=== PATIENT | female | born 1970 | race Caucasian/White ===

== ENCOUNTER → 2017-09-23 | Outpatient (CLI) | payer OTHER | LOC: BMCIMAGING 12:46 | PROVIDERS: ATTEND Physician Assistant | DX: Z12.31 Encounter for screening mammogram for malignant neoplasm of breast (principal); Z80.3 Family history of malignant neoplasm of breast | CPT/HCPCS: G0202 ==

== ENCOUNTER → 2018-10-18 | Outpatient (CLI) | payer OTHER | LOC: BMCIMAGING 10:50 | PROVIDERS: ATTEND Physician Assistant | DX: R92.0 Mammographic microcalcification found on diagnostic imaging of breast (principal) ==

== ENCOUNTER → 2018-11-16 | Day surgery (SDC) | payer OTHER ==
[~2018-11-16] MED LIST: BUPIVACAINE 0.5% 30 ML SDV ONE; LIDOCAINE 1% 300 MG/30 ML SDV ONE; THROMBIN (BOVINE) 5,000 UNIT VIAL TP ONE
== END ==
LOC: FIMAGING 07:19
PROVIDERS: ATTEND Radiology Diagnostic Radiology
PROC: BH01ZZZ Plain Radiography of Left Breast (ICD-10-PCS; principal; 2018-11-16)
PROC: 0HBU3ZX Excision of Left Breast, Percutaneous Approach, Diagnostic (ICD-10-PCS; principal; 2018-11-16)
DX: C50.912 Malignant neoplasm of unspecified site of left female breast (principal); Z17.0 Estrogen receptor positive status [ER+]

== ENCOUNTER → 2018-12-03 | Outpatient (CLI) | payer OTHER ==
[~2018-12-03] MED LIST changes: -BUPIVACAINE 0.5% 30 ML SDV ONE; +GADOBUTROL 10 ML VIAL IVP ONE; -LIDOCAINE 1% 300 MG/30 ML SDV ONE; -THROMBIN (BOVINE) 5,000 UNIT VIAL TP ONE
== END ==
LOC: FIMAGING 11:31
PROVIDERS: ATTEND Surgery
DX: D05.12 Intraductal carcinoma in situ of left breast (principal); N63.21 Unspecified lump in the left breast, upper outer quadrant
CPT/HCPCS: A9585; C8908

== ENCOUNTER → 2018-12-06 | Outpatient (CLI) | payer OTHER | LOC: BRMIMAGING 09:20 | PROVIDERS: ATTEND Surgery | DX: N63.21 Unspecified lump in the left breast, upper outer quadrant (principal); C50.512 Malignant neoplasm of lower-outer quadrant of left female breast | CPT/HCPCS: 76641-PO ==

== ENCOUNTER → 2018-12-13 | Outpatient (CLI) | payer OTHER ==
[~2018-12-13] MED LIST changes: +BUPIVACAINE 0.5% 30 ML SDV ONE; -GADOBUTROL 10 ML VIAL IVP ONE; +LIDOCAINE 1% 300 MG/30 ML SDV ONE
== END ==
LOC: FIMAGING 07:19
PROVIDERS: ATTEND Surgery
PROC: 0HBU3ZX Excision of Left Breast, Percutaneous Approach, Diagnostic (ICD-10-PCS; principal; 2018-12-13)
DX: C50.212 Malignant neoplasm of upper-inner quadrant of left female breast (principal)

== ENCOUNTER 2018-12-28 09:05 | Observation (INO) | payer OTHER ==
[2018-12-28] MEDS ORDERED: LR 1,000 ML IV ONE (09:21)
[2018-12-28] MEDS ORDERED: BACITRACIN ZINC 0.5 OZ OINTTUBE TP ONE (09:49)
[2018-12-28] MEDS ORDERED: BUPIVACAINE 0.25% 30 ML SDV ONE ×2 (09:50→14:25)
[2018-12-28] MEDS ORDERED: GENTAMICIN SULFATE 80 MG/2 ML VIAL ONE (09:50)
[2018-12-28] MEDS ORDERED: HEPARIN 10,000 UNIT/10 ML MDV (1,000 UNIT/ML) ONE (09:50)
[2018-12-28] MEDS ORDERED: BUPIVACAINE 0.5% 30 ML SDV ONE (09:50)
[2018-12-28] MEDS ORDERED: ceFAZolin 1 GM/5 ML SYR ONE (09:51)
[2018-12-28] MEDS ORDERED: METHYLENE BLUE 0.5% 50 MG/10 ML AMP ONE (09:51)
[2018-12-28] MEDS ORDERED: BACITRACIN 50,000 UNITS/10 ML SYR IRR ONE (09:51)
[2018-12-28] MEDS ORDERED: MIDAZOLAM 2 MG/2 ML VIAL IVP ONE (10:28)
[2018-12-28] MEDS ORDERED: ceFAZolin 2 GM/DEXTROSE 100 ML IV ONE (10:36)
--- NOTE | 2018-12-28 10:36 | PDGENHP ---
History & Physical Chief Complaint: L breast CA History of Present Illness: Initial extensive DCIS L breast; MRI demonstrated separate focus of invasive CA. Pertinent Past, Social, Family History: No prior breast biopsy. Relevant Physical Exam: Alert, NAD. RRR. CTA B. Abd soft, NTTP Cardiorespiratory Assessment: As above. Plan for B mastectomy with reconstruction, L SLB biopsy, port placement. Risks/benefits reviewed. Questions answered.
[2018-12-28] MEDS ORDERED: CEFAZOLIN 2 GM/DEXTROSE/100 ML BAG IV ONE (10:38)
[2018-12-28] MEDS ORDERED: fentaNYL 100 MCG/2 ML INJ ONE ×2 (10:42→15:15)
[2018-12-28] MEDS ORDERED: DEXAMETHASONE 4 MG/ML VIAL ONE (10:42)
[2018-12-28] MEDS ORDERED: ONDANSETRON 4 MG/2 ML VIAL ONE (10:42)
[2018-12-28] MEDS ORDERED: PROPOFOL 200 MG/20 ML VIAL ONE (10:42)
[2018-12-28] MEDS ORDERED: ROCURONIUM 50 MG/5 ML VIAL ONE ×2 (10:42→13:55)
[2018-12-28] MEDS ORDERED: KETOROLAC 30 MG/1 ML SDV ONE (10:42)
[2018-12-28] MEDS ORDERED: ROPIVACAINE HCL 150 MG/30 ML INJ ONE (10:43)
[2018-12-28] MEDS ORDERED: LIDOCAINE 2% 5 ML SDV ONE (10:44)
--- NOTE | 2018-12-28 10:50 | PDANEPAE ---
ANE History of Present Illness mast/recon ANE Past Medical History - Cardiovascular History Hx Hypertension: No Hx Arrhythmias: No Hx Chest Pain: No Hx Coronary Artery / Peripheral Vascular Disease: No Hx CHF / Valvular Disease: No Hx Palpitations: No - Pulmonary History Hx COPD: No Hx Asthma/Reactive Airway Disease: No Hx Recent Upper Respiratory Infection: No Hx Oxygen in Use at Home: No Hx Sleep Apnea: No - Neurologic History Hx Cerebrovascular Accident: No Hx Seizures: No Hx Dementia: No - Endocrine History Hx Diabetes: No Hypothyroid: No Hyperthyroid: No Obesity: no - Renal History Hx Renal Disorders: No - Liver History Hx Hepatic Disorders: No - Neurological & Psychiatric Hx Hx Neurological and Psychiatric Disorders: Yes Neurological / Psychiatric History Comment: anxious about surgery - Cancer History Hx Cancer: No - Congenital Disorder History Hx Congenital Disorders: No - GI History GERD: no Hx Gastrointestinal Disorders: Yes Gastrointestinal History Comment: intermittent travelers constipation - Other Health History Other Health History: wears glasses for work - Chronic Pain History Chronic Pain: No (hips) - Surgical History Prior Surgeries: tonsillectomy at 9 yo ANE Review of Systems Review of Systems: - Exercise capacity Exercise capacity: >=4 METS METS (RN): 5 METS ANE Patient History - Allergies Allergies/Adverse Reactions: corn Allergy (Verified 12/28/18 09:32) Penicillins Allergy (Verified 12/01/18 10:17) Rash Tetanus Vaccines and Toxoid Allergy (Verified 12/01/18 10:17) flu-like symptoms wheat Allergy (Verified 12/23/18 13:46) - Home Medications Home Medications: Herbals/Supplements -Info Only 1 ea PO DAILY 12/23/18 [Last Taken 12/21/18] LORazepam [Ativan (*)] 0.5 - 1 mg PO HS 12/23/18 [Last Taken 12/28/18 02:00] - NPO status NPO Status: no food or drink >8 hours NPO Since - Liquids (Date): 12/28/18 NPO Since - Liquids (Time): 02:00 NPO Since - Solids (Date): 12/27/18 NPO Since - Solids (Time): 18:00 - Anes Hx Anes Hx: no prior problems - Smoking Hx Smoking Status: Former smoker - Family Anes Hx Family Hx Anesthesia Complications: none ANE Labs/Vital Signs - Vital Signs Blood Pressure: 107/81 Heart Rate: 83 Respiratory Rate: 16 O2 Sat (%): 98 Height: 165.1 cm Weight: 64.41 kg ANE Physical Exam - Airway Mallampati Score: Class 2 Mouth exam: normal dental/mouth exam - Pulmonary Pulmonary: no respiratory distress - Cardiovascular Cardiovascular: regular rate and rhythym - ASA Status ASA Status: I ANE Anesthesia Plan Anesthesia Plan: GA w LMA (pec I and II)
[2018-12-28] MEDS ORDERED: ePHEDrine SULFATE 25 MG/5 ML SYR ONE (11:47)
[2018-12-28] MEDS ORDERED: HYDROmorphONE/DILAUDID 2 MG/ML INJ ONE ×2 (13:06→15:15)
[2018-12-28] MEDS ORDERED: SUGAMMADEX SODIUM 200 MG/2 ML VIAL IVP ONE (14:24)
--- NOTE | 2018-12-28 14:24 | POSTOPPROG ---
Post Op Note Date of Operation: 12/28/18 Surgeon: Chris Graff Waiter/Waitress Cafeteria: Charles Buck Anesthesiologist: Dr. Feliz Anesthesia: LMA Pre-op Diagnosis: L breast CA Post-op Diagnosis: same Procedure: R SCV port, L SLN biopsy, B mastectomy Inf/Abcess present in the surg proc area at time of surgery?: No EBL: Minimal
[2018-12-28] MEDS ORDERED: LR 500 ML IV PRN (14:56)
[2018-12-28] MEDS ORDERED: PROMETHAZINE HCL 25 MG/ML INJ IVP PRN (14:56)
[2018-12-28] MEDS ORDERED: NALOXONE HCL 0.4 MG/ML INJ IVP PRN (14:56)
[2018-12-28] MEDS ORDERED: ALBUTEROL 3 ML DEYVIAL IH PRN (14:56)
[2018-12-28] MEDS ORDERED: ONDANSETRON 4 MG/2 ML VIAL IVP PRN ×2 (14:56→16:24)
--- NOTE | 2018-12-28 15:06 | POSTANESTH ---
Post Anesthetic Evaluation Cardiovascular Status: Normal, Stable Respiratory Status: Normal, Stable Level of Consciousness/Mental Status: Can Participate in Eval Pain Control: Adequate, Prn Tx Ordered Nausea/Vomiting Control: Adequate, Prn Tx Ordered Complications Possibly Related to Anesthesia: None Noted
--- NOTE | 2018-12-28 15:13 | GOP ---
[f rep st] OPERATIVE REPORT DATE OF OPERATION: 12/28/2018 SURGEON: Chandler Graff MD ASSURANCE SENIOR: Rafa Buck, whose presence was requested by me and medically necessary for the safe and timely completion of this case. ANESTHESIA: General endotracheal anesthesia. ANESTHESIOLOGIST: Dr. Feliz PREOPERATIVE DIAGNOSIS: Left breast cancer. POSTOPERATIVE DIAGNOSIS: Left breast cancer. PROCEDURE PERFORMED: 1. Right subclavian Port-A-Cath placement. 2. Left sentinel lymph node biopsy. 3. Bilateral mastectomies. FINDINGS: The sentinel lymph node was negative. No other lesions were noted. ESTIMATED BLOOD LOSS: 40 cc. INDICATIONS: 48-year-old female with a history of left breast cancer. Risks and benefits of the procedure were discussed with the patient and her family. Their questions were answered. They wished to proceed. DESCRIPTION OF PROCEDURE: Patient was placed in the supine position. After the induction of laryngeal mask anesthesia and block, the patient was prepped and draped in the standard surgical fashion. The Port-A-Cath was placed first. Due to left-sided cancer, the port was placed on the right. The subclavian vein was aspirated on the right with a finder needle. Wire was threaded, and position confirmed on fluoroscopy. After injecting 0.5% Marcaine, a small pocket was made for a slim port on the right chest wall. This was carried down through subcutaneous tissue with Bovie cautery and blunt dissection. A pocket was created inferiorly using blunt dissection. The wire site was enlarged with a #11 blade, and the preflushed catheter was tunneled through the port site into the wire site. Next, a dilator sheath combination was passed over the wire , and the wire and dilator were withdrawn. The catheter was threaded through the sheath, which was removed. Placement was confirmed under fluoroscopy. The catheter was trimmed to fit and attached to the preflushed port. This was secured to the chest wall using 2-0 Prolene in interrupted fashion. It was aspirated and flushed without difficulty. Port final placement was again confirmed on fluoroscopy. The subcutaneous tissue was approximated with 3-0 Vicryl in interrupted fashion. Skin was closed with 4-0 Monocryl in a subcuticular stitch. Wound was dressed with Dermabond. Attention was then turned to the left sentinel node. After injecting 0.5% Marcaine for local anesthesia, a small incision was made in the axilla. This was carried down through the subcutaneous tissue with Bovie cautery and blunt dissection. The axillary fascia was opened and the fat pad identified. Using the Neoprobe, a cluster of 2-3 sentinel nodes was easily identified. Apparent lymphatics were clipped, and the axillary fat was cauterized. The nodes were removed and Neoprobe confirmed radioactivity. Neoprobe was returned to the bed , and no significant background activity was noted. The sentinel nodes were sent for frozen section, which returned negative. The subcutaneous tissue was then approximated in layers using 3-0 Vicryl in interrupted fashion. Skin was closed with 4-0 Monocryl in a subcuticular stitch. Wound was dressed with Dermabond. The right mastectomy was addressed next. Using the pre drawn lines, incisions were made for the mastectomy using a #10 blade. This was carried down through subcutaneous tissues with Bovie cautery. Flaps were then elevated using Bovie cautery and blunt dissection superiorly to just below the clavicle and the port , medially to the sternum, inferiorly to the inframammary crease, and laterally to the axillary fat pad. On the right side, the fascia was left in place. The breast was rotated off medial to lateral. The lateral aspect was marked with a suture and was sent for permanent section. Hemostasis was achieved with cautery , and the area was thoroughly irrigated and aspirated. After noting good hemostasis, a moist lap was placed, and the area was segregated for the remainder of the procedure. The left mastectomy was addressed last. This was performed in identical fashion. Care was especially taken in the left upper outer quadrant to achieve maximal resection of breast tissue. The fascia on the left side was taken with the specimen. It was once again marked laterally with a silk suture and sent for permanent section. Hemostasis was then achieved with cautery and the area thoroughly irrigated and aspirated. At this point, the plastic surgery portion of the procedure commenced. Please see the operative report for full details of the remainder of the procedure. COMPLICATIONS: None. DRAINS: None. /[id number]/MODL MTDD
[2018-12-28] MEDS: fentaNYL 100 MCG/2 ML INJ IVP PRN ×3 (15:17→16:49)
[2018-12-28] MEDS: HYDROmorphONE/DILAUDID 2 MG/ML INJ IVP PRN ×4 (15:21→16:49)
--- NOTE | 2018-12-28 15:38 | GOP ---
[f rep st] OPERATIVE REPORT DATE OF OPERATION: 12/28/2018 SURGEON: Contreras Valentin Jr., MD FABRICS AND MATERIAL CUTTER: Kaleb Romo OPTICS TECHNICAL OFFICER, by surgeon request (skilled neurosurgical nurse practitioner was necessary due t o the technical complexity of the case and desire to minimize patient anesthesia time). ANESTHESIA: Patient general inhalational anesthetic. ANESTHESIOLOGIST: Dr. Ulises Feliz PREOPERATIVE DIAGNOSIS: Left breast cancer. POSTOPERATIVE DIAGNOSIS: Left breast cancer. PROCEDURE PERFORMED: Immediate bilateral breast reconstruction utilizing tissue expanders and AlloDe rm following mastectomy for breast cancer. FINDINGS: ESTIMATED BLOOD LOSS: During reconstruction was 10 cc. INDICATIONS: The patient is a 48-year-old white female referred from Dr. Jaylen Graff to consider b reast reconstruction following a planned bilateral mastectomy for a left breast cancer. She was deem ed an excellent candidate for prepectoral placement of AlloDerm wrapped tissue expanders as a first s tage of reconstruction in conjunction with the mastectomies and was seen in the operating room for th at purpose. DESCRIPTION OF PROCEDURE: She was taken to the operating room by Dr. Graff, where an uncomplicated bilateral mastectomy and PowerPort placement was performed. Reconstruction began by utilizing fresh instrumentation, electrocautery and suction. Fresh towels an d drapes were applied. The pockets were initially irrigated with normal saline. Meticulous hemostas is was assured. The flaps were evaluated and were very healthy and robust. She had [email or web address] e 133+ FX 450 cc tissue expanders thoroughly tested, evacuated of air, and filled with 300 cc of air. There were then complete. AlloDerm acellular dermis graft wrap was then performed. The AlloDerm w as prepared with triple rinsing in normal saline, followed by soaking in triple antibiotic saline. T he tissue expanders were then sutured down to the chest wall bilaterally in the appropriate position using 2-0 PDS suture. A 15 round drain was placed bilaterally. The mastectomy flaps were then advanced. Skin edges closed using everting deep dermal 3-0 Monocryl s utures. Small dog ears were excised. Skin eversion was carried out using surgical filomena. 15 cc o f 0.25% plain Marcaine was instilled in the drain. Bacitracin, Xeroform, and 4x4s were applied with a lightly compressive bra. She was extubated in the OR and taken to recovery room awake in stable co ndition. TISSUE EXPANDERS,: Allergan Natrelle 133+ FX 450 cc devices filled to 300 cc with air. DRAINS: Two CAROL drains placed. COMPLICATIONS: No complications. CLINICAL COURSE: After risks, benefits of procedure were explained to the patient, highlighting blee ding, infection, partial to complete mastectomy flap loss, implant or tissue import export manager malposition or rotation, need for premature removal of tissue import export manager, and need for additional procedures, formal o perative consent was obtained. /[id number]/MODL
[2018-12-28] MEDS ORDERED: HYDROmorphONE/DILAUDID 1 MG/ML INJ IVP PRN (16:24)
[2018-12-28] MEDS ORDERED: HYDROCODONE/APAP 5/325 TAB ONE (16:44)
[2018-12-28] MEDS: HYDROCODONE/APAP 5/325 TAB PO PRN ×2 (16:47→20:19)
[2018-12-29] MEDS: HYDROCODONE/APAP 5/325 TAB PO PRN ×3 (05:58→20:11)
[2018-12-29 10:06] LABS: PLATELET COUNT 197 10^3/uL (150-400)
--- NOTE | 2018-12-29 10:53 | SOAPPROG ---
SOAP Progress Note Assessment/Plan: Assessment: s/p B mastectomy with reconstruction. Likely vagal episode, will continue to monitor. Ambulate. D/w patient and family, questions answered. Plan: 12/29/18 10:50 Subjective: Patient with an episode of near-fainting this AM upon standing, none since. Pain controlled, no N/V. Patrica po. Objective: Vital Signs Temp Pulse Resp BP Pulse Ox 36.7 C 69 20 92/58 L 96 12/29/18 08:48 12/29/18 09:22 12/29/18 09:13 12/29/18 09:22 12/29/18 09:22 Laboratory Results 12/29/18 09:49 12/29/18 09:49 12/28/18 12/29/18 12/30/18 05:59 05:59 05:59 Intake Total 2850 Output Total 2150 900 Balance 700 -900 Alert, NAD [employer] C/D/I, flaps viable. CAROL bloody drainage ICD10 Worksheet Patient Problems: Problems Problem Status Onset Breast cancer, left breast Acute - ICD10 Problem Qualifiers (1) Breast cancer, left breast
[2018-12-29] MEDS: KETOROLAC 15 MG/1 ML SDV IVP SCH ×3 (11:10→17:47)
--- NOTE | 2018-12-29 13:51 | ASMTCMCOM ---
CM Note CM Note Notes: Pt discussed in rounds. Pt admitted with Left Breast Cancer for a Bilateral mastectomy with resection and Port Placement. Danika Dupree (Breast Cancer Nurse Navigator) has seen and Pt is set up with resources. Case Management will continue to monitor for needs. Plan: TBD Date Signed: 12/29/2018 01:51 PM Electronically Signed By:Yana Enrique
[2018-12-29] MEDS ORDERED: NS 500 ML IV ONE (16:30)
[2018-12-30] MEDS: KETOROLAC 15 MG/1 ML SDV IVP SCH ×3 (00:13→13:03)
[2018-12-30 12:29] VITALS: BP 115/77
--- NOTE | 2018-12-30 12:40 | SOAPPROG ---
SOAP Progress Note Assessment/Plan: Assessment: s/p B mastectomy with reconstruction, markedly improved. Plan d/c home, reviewed instructions. Plan: 12/29/18 10:50 12/30/18 12:38 Subjective: Patient feels better, no further dizzy spells today. Pain controlled on po meds. Ambulating. Objective: Vital Signs Temp Pulse Resp BP Pulse Ox 36.8 C 92 16 115/77 98 12/30/18 12:00 12/30/18 12:00 12/30/18 12:00 12/30/18 12:00 12/30/18 12:00 Laboratory Results 12/29/18 09:49 12/29/18 09:49 12/29/18 12/30/18 12/31/18 05:59 05:59 05:59 Intake Total 2850 1400 Output Total 2150 3220 650 Balance 700 -1820 -650 Alert, NAD [employer] C/D/I, flaps viable CAROL's thin sanguinous ICD10 Worksheet Patient Problems: Problems Problem Status Onset Breast cancer, left breast Acute - ICD10 Problem Qualifiers (1) Breast cancer, left breast
--- NOTE | 2018-12-30 15:01 | ASMTLACE ---
CONCEPCION Length of stay for Answers: 2 days current admission Comorbidities - select Answers: Any tumor (including all that apply lymphoma or leukemia) # of Emergency department Answers: 0 visits in the last 6 months Score: 4 Date Signed: 12/30/2018 03:00 PM Electronically Signed By:Yana Enrique
--- NOTE | 2018-12-30 15:06 | ASMTCMCOM ---
CM Note CM Note Notes: Pt discussed in rounds. Not other needs identified. Discharge to home independently with Isra. Plan: Home independently Date Signed: 12/30/2018 03:06 PM Electronically Signed By:Yana Enrique
--- NOTE | 2019-01-04 16:33 | GDS ---
[f rep st] DISCHARGE SUMMARY PRINCIPAL DIAGNOSIS: Breast cancer. PRINCIPAL PROCEDURE: Bilateral mastectomy with sentinel lymph node biopsy. INDICATIONS FOR ADMISSION: A 48-year-old female with a history of left breast cancer. Please see th e history and physical for full details of admission and hospital course. On 12/28/2018, patient und erwent bilateral mastectomy with reconstruction, left sentinel lymph node biopsy, and Port-A-Cath karlene cement. Please see the operative report for full details of the procedures. Postoperatively, larissa mccrary did well. Was admitted to the oncology unit. She gradually improved and was advanced on her diet. By 12/30/2018, patient was ambulating, voiding, and tolerating p.o. Pain was controlled with p.o. pain medications. She had been given instructions regarding her drain management. She will follow u p with both Plastic Surgery and General Surgery. /[id number]/MODL
== END 2018-12-30 13:48 | disposition home or self-care (01) ==
LOC: F3N 09:05 → EDSTATUS 11:15 → F1N 18:38
PROVIDERS: ADMIT Surgery; ATTEND Surgery
PROC: 07B60ZX Excision of Left Axillary Lymphatic, Open Approach, Diagnostic (ICD-10-PCS; principal; 2018-12-28 10:45)
PROC: 0HTV0ZZ Resection of Bilateral Breast, Open Approach (ICD-10-PCS; principal; 2018-12-28 10:45)
PROC: 02HV33Z Insertion of Infusion Device into Superior Vena Cava, Percutaneous Approach (ICD-10-PCS; principal; 2018-12-28 10:45)
PROC: 0JH60XZ Insertion of Tunneled Vascular Access Device into Chest Subcutaneous Tissue and Fascia, Open Approach (ICD-10-PCS; principal; 2018-12-28 10:45)
PROC: 0HRV0JZ Replacement of Bilateral Breast with Synthetic Substitute, Open Approach (ICD-10-PCS; 2018-12-28 10:45)
DX: D05.12 Intraductal carcinoma in situ of left breast (principal)
CPT/HCPCS: 19304; 19340; 36561; 38500; A9520; G0378; J0690; J1100; J1170; J1580; J1642; J1644; J1885; J2250; J2405; J2704; J2795; J3010; Q9968